=== PATIENT | female | born 1970 | race Caucasian/White ===

== ENCOUNTER 2019-02-02 17:49 | Emergency (ER) | payer MEDICAID ==
[~2019-02-02] VITALS: Ht 154.9 cm; Wt 68.2 kg
[~2019-02-02 17:49] MED LIST: ALPR-624 PO; ESCI20TA; ESOM40CA PO; HYDR4TAB45 PO; LAMO200T2 PO; LOVA40TA76 PO; OXYC-147 PO; RISP2TAB97 PO; TOP100T PO
[2019-02-02 17:59] VITALS: BP 122/77
[2019-02-02] MEDS ORDERED: ketorolac tromethamine 15mg/ml inj. IM ONE (18:40)
== END 2019-02-02 18:59 | disposition home or self-care (01) ==
LOC: ER 17:51
DX: M79.672 Pain in left foot (principal); E78.00 Pure hypercholesterolemia, unspecified; J44.9 Chronic obstructive pulmonary disease, unspecified; G89.29 Other chronic pain; Z90.49 Acquired absence of other specified parts of digestive tract; Z98.890 Other specified postprocedural states; Z90.710 Acquired absence of both cervix and uterus; Z79.899 Other long term (current) drug therapy
CPT/HCPCS: 99281; J1885

== ENCOUNTER 2019-02-11 13:23 | Emergency (ER) | payer MEDICAID ==
[~2019-02-11] VITALS: Ht 154.9 cm; Wt 68.2 kg
[2019-02-11 13:38] VITALS: BP 104/58
[2019-02-11] MEDS ORDERED: ibuprofen tablet 400 MG TABLET PO ONE (15:25)
[2019-02-11] MEDS ORDERED: IBUP-1985 PO (15:28)
== END 2019-02-11 15:39 | disposition home or self-care (01) ==
LOC: ER 13:24
DX: S93.692A Other sprain of left foot, initial encounter (principal); E78.00 Pure hypercholesterolemia, unspecified; J44.9 Chronic obstructive pulmonary disease, unspecified; G89.29 Other chronic pain; F31.9 Bipolar disorder, unspecified; Z90.49 Acquired absence of other specified parts of digestive tract; Z90.710 Acquired absence of both cervix and uterus; Z98.890 Other specified postprocedural states; Z88.6 Allergy status to analgesic agent; Z79.899 Other long term (current) drug therapy; X50.1XXA Overexertion from prolonged static or awkward postures, initial encounter; Y93.89 Activity, other specified; Y92.89 Other specified places as the place of occurrence of the external cause; Y99.8 Other external cause status
CPT/HCPCS: 73630; 99283

== ENCOUNTER 2020-01-26 17:47 | Emergency (ER) | payer OTHER, MEDICAID ==
[~2020-01-26] VITALS: Ht 154.9 cm; Wt 72.4 kg
[~2020-01-26 17:47] MED LIST changes: +IBUP-1985 PO
[2020-01-26 18:03] VITALS: BP 139/80
[2020-01-26] MEDS ORDERED: ketorolac tromethamine 15mg/ml inj. IM ONE (18:50)
== END 2020-01-26 19:43 | disposition home or self-care (01) ==
LOC: ER 17:47
DX: S13.4XXA Sprain of ligaments of cervical spine, initial encounter (principal); M25.512 Pain in left shoulder; E78.00 Pure hypercholesterolemia, unspecified; J44.9 Chronic obstructive pulmonary disease, unspecified; G89.29 Other chronic pain; F31.9 Bipolar disorder, unspecified; Z90.89 Acquired absence of other organs; Z90.710 Acquired absence of both cervix and uterus; Z88.8 Allergy status to other drugs, medicaments and biological substances; Z79.899 Other long term (current) drug therapy; V49.3XXA Car occupant (driver) (passenger) injured in unspecified nontraffic accident, initial encounter; Y93.89 Activity, other specified; Y92.89 Other specified places as the place of occurrence of the external cause; Y99.8 Other external cause status
CPT/HCPCS: 96372; 99283; J1885

== ENCOUNTER 2020-09-30 14:22 | Emergency (ER) | payer MEDICAID ==
[~2020-09-30] VITALS: Ht 154.9 cm; Wt 71.6 kg
--- NOTE | 2020-09-30 16:08 | NUR ---
PROVIDER AT BEDSIDE, PT C/O MIGRAINE X1 WEEK, +N/V, PHOTOPHOBIA, SENSITIVE TO NOISE, LYING ON GURNEY IN DARK ROOM, EYES HURT TO OPEN, PT IS GCS 15, ALERT AND ORIENTED, RESP EVEN AND UNLABORED, PT DOES HAVE H/O MIGRAINES BUT NOT THIS BAD, FAMILY AT BEDSIDE
[2020-09-30] MEDS ORDERED: ketorolac trometh. 30mg/ml inj. IV ONE (16:15)
[2020-09-30] MEDS ORDERED: diphenhydrAMINE 50 mg/ml inj IV ONE (16:15)
[2020-09-30] MEDS ORDERED: proCHLORperazine 10 MG/2 ml inj IV ONE (16:15)
[2020-09-30] MEDS ORDERED: normal saline 1000ML IV soln IVB ONE (16:15)
--- NOTE | 2020-09-30 16:34 | NUR ---
PT IS RESTING QUIETLY ON GURNEY, 1ST LITER NS INFUSING W/O, ICE PACK ON HEAD
[2020-09-30 17:36] VITALS: BP 100/62
[2020-09-30] MEDS ORDERED: SUMA25TA35 PO (18:15)
--- NOTE | 2020-09-30 18:18 | NUR ---
pt amb with steady gait to restroom, said headache is down to 2/10, and she is ready to go home
== END 2020-09-30 18:35 | disposition home or self-care (01) ==
LOC: ER 14:23
DX: G43.909 Migraine, unspecified, not intractable, without status migrainosus (principal); E78.00 Pure hypercholesterolemia, unspecified; J44.9 Chronic obstructive pulmonary disease, unspecified; F31.9 Bipolar disorder, unspecified; Z88.8 Allergy status to other drugs, medicaments and biological substances; Z79.899 Other long term (current) drug therapy
CPT/HCPCS: 96361; 96374; 96375; 99284; J0780; J1200; J1885; J7030

== ENCOUNTER 2022-12-31 18:47 | Emergency (ER) | payer MEDICAID ==
[~2022-12-31] VITALS: Ht 154.9 cm; Wt 77.3 kg
[2022-12-31 19:24] VITALS: BP 164/85; PULSE 68; RESP 18; TEMP 98.8; O2SAT 99
[2022-12-31] MEDS ORDERED: NEO/5DRO3 OP (21:40)
== END 2022-12-31 21:44 | disposition home or self-care (01) ==
LOC: ER 18:47
DX: H10.9 Unspecified conjunctivitis (principal); E78.00 Pure hypercholesterolemia, unspecified; J44.9 Chronic obstructive pulmonary disease, unspecified; G89.29 Other chronic pain; Z90.49 Acquired absence of other specified parts of digestive tract; Z98.891 History of uterine scar from previous surgery; Z90.710 Acquired absence of both cervix and uterus; Z79.899 Other long term (current) drug therapy; Z91.041 Radiographic dye allergy status
CPT/HCPCS: 99283

== ENCOUNTER 2023-01-04 14:02 | Emergency (ER) | payer MEDICAID ==
[~2023-01-04] VITALS: Ht 154.9 cm; Wt 76.4 kg
[~2023-01-04 14:02] MED LIST changes: +NEO/5DRO3 OP
[2023-01-04 14:08] VITALS: BP 152/90; PULSE 105; RESP 20; TEMP 98; O2SAT 97
[2023-01-04] MEDS ORDERED: MOXI3DRO25 EACHEYE (16:10)
[2023-01-04] MEDS ORDERED: AMOX-117 PO (16:10)
== END 2023-01-04 16:35 | disposition home or self-care (01) ==
LOC: ER 14:04
DX: H10.89 Other conjunctivitis (principal); E78.00 Pure hypercholesterolemia, unspecified; J44.9 Chronic obstructive pulmonary disease, unspecified; G89.29 Other chronic pain; M54.9 Dorsalgia, unspecified; F31.9 Bipolar disorder, unspecified; Z90.49 Acquired absence of other specified parts of digestive tract; Z88.5 Allergy status to narcotic agent; Z79.899 Other long term (current) drug therapy
CPT/HCPCS: 99283

== ENCOUNTER 2024-10-09 19:48 | Emergency (ER) | payer MEDICARE, MEDICAID ==
[2024-10-09 20:11] VITALS: BP 133/45; PULSE 85; RESP 15; O2SAT 98
--- NOTE | 2024-10-09 20:50 | RADIOLOGY REPORT ---
CLINICAL INDICATION: ANKLE PAIN TECHNIQUE: 3 radiographic views of the right ankle were obtained. Comparison: None FINDINGS/IMPRESSION: There is no evidence of acute fracture or dislocation. The visualized joint space is well maintained. The alignment is anatomical. There is no radiopaque foreign body. There is mild ankle soft tissue edema.
--- NOTE | 2024-10-09 23:18 | Physician Documentation ---
History of Present Illness ~ Chief Complaint: Mechanical Fall Stated Complaint: FALL Time Seen by MD: 20:37 Primary Medical Doctor: RAMYA HOGAN Trip, fall, R ankle pain tonight in driveway. No other injuries, has difficulty ambulating on her R foot 2/2 pain and swelling. Tetanus within 5 Years?: Yes Medication Reconciliation Allergies: Coded Allergies: iodine (Unverified Allergy, Unknown, 10/09/24) TOPICAL IODINE Scheduled Alprazolam* (Xanax*), 1 MG PO Q6H, (Reported) Escitalopram Oxalate (Lexapro), 40 DAILY, (Reported) Esomeprazole Mag Trihydrate* (Nexium*), 40 MG PO DAILY, (Reported) Hydromorphone Hcl (Dilaudid), 4 MG PO Q6H, (Reported) Ibuprofen (Ibuprofen), 1 TAB PO Q8H Lamotrigine* (Lamictal*), 200 MG PO DAILY, (Reported) Lovastatin* (Mevacor*), 40 MG PO DAILY, (Reported) Lovastatin* (Mevacor*), 40 MG PO DAILY, (Reported) Mathieu/Polymyx B Sulf/Dexameth (Maxitrol Eye Drops), 1 DROP OP Q6H Oxycodone Hcl/Acetaminophen (Percocet 5-325 Mg Tablet), 2 EACH PO Q4H PRN PAIN, (Reported) Risperidone (Risperdal), 2 MG PO BID, (Reported) Topiramate* (Topamax*), 100 MG PO BID, (Reported) Past Medical History Past Medical History: High Cholesterol, COPD, Chronic Back Pain, Bipolar Past Surgical History: appendectomy, , hysterectomy Alcohol Use: Rarely Drug Use: none Lives with: Family Lives In: Home Occupation: disabled Review of Systems All Other Systems at this time: Reviewed and Negative Physical Exam Vital Signs: RN Vital Signs have been reviewed: Yes, Temperature: 96.8, Source: Temporal, Heart Rate: 85, Respiratory Rate: 15, BP: 133/45, Pulse Oximetry: 98 Physical Exam HEENT: PERRL, moist oral mucosa, EOMI Pulmonary: No respiratory distress MSK: no deformity; R ankle +swelling +anterolateral tenderness Skin: w/d/i, no rash Neuro: alert, nonfocal Psych: normal affect Progress Results/Orders Results/Orders Orders - PRACHI MOHAN MD Ankle, Complete(3vw Min) (10/09/24 20:13) Completed Orders - PRACHI MOHAN MD Ankle, Complete(3vw Min) (10/09/24 20:13) Vital Signs 10/09/24 20:11 Temp 96.8 Pulse 85 Resp 15 B/P (MAP) 133/45 Pulse Ox 98 Medical Decision Making Findings 54 year old male with R ankle pain/swelling after GLF. Xray unremarkable. Counseled reassured discharged. Differential Dx:Considerations: Include: Fracture(s), Contusion(s), Hematoma(s) Additional Comment Ddx includes sprain Departure Disposition: HOME / SELF CARE / HOMELESS Impression: Primary Impression: Sprain Condition: Stable Discharge Instructions: Fall Prevention in the Home, Adult, [id number] Referrals: NO PRIMARY CARE PROVIDER (PCP) Education Educated: Patient, Family Educated regarding: diagnosis, treatment, prognosis, need for follow up Signature Scribe Signature: . Attestation: . PRACHI MOHAN MD Oct 09, 2024 23:18
[2024-10-09 23:22] VITALS: TEMP 96.8
== END 2024-10-09 23:23 | disposition home or self-care (01) ==
LOC: ER 19:48
DX: S93.491A Sprain of other ligament of right ankle, initial encounter (principal); F31.9 Bipolar disorder, unspecified; J44.9 Chronic obstructive pulmonary disease, unspecified; E78.00 Pure hypercholesterolemia, unspecified; Z90.710 Acquired absence of both cervix and uterus; Z90.49 Acquired absence of other specified parts of digestive tract; Z91.041 Radiographic dye allergy status; Z79.899 Other long term (current) drug therapy; W01.0XXA Fall on same level from slipping, tripping and stumbling without subsequent striking against object, initial encounter; Y93.89 Activity, other specified; Y92.89 Other specified places as the place of occurrence of the external cause; Y99.8 Other external cause status
CPT/HCPCS: 73610; 99284